=== PATIENT | female | born 1990 | race Caucasian/White ===

== ENCOUNTER 2016-11-09 14:51 | Emergency (ER) | payer MEDICAID ==
[~2016-11-09] VITALS: Ht 157.5 cm; Wt 43.1 kg
[2016-11-09 14:57] VITALS: BP 127/81
[2016-11-09] MEDS ORDERED: ADDERALL 20 MG20 MG ORAL (15:00)
[2016-11-09] MEDS ORDERED: KLONOPIN0.5 MG ORAL (15:01)
[2016-11-09] MEDS ORDERED: CELEXA20 MG ORAL (15:01)
[2016-11-09] MEDS ORDERED: XANAX0.5 MG ORAL (15:24)
[2016-11-09] MEDS ORDERED: CORTISPORIN EAR10 ML LEFT EAR (15:24)
[2016-11-09 15:29] VITALS: BP 116/78
--- NOTE | 2016-11-09 22:41 | Emergency Room Report ---
History of Present Illness General Chief Complaint: General Complaint Source: Patient Present Illness HPI The patient is a 26-year-old female with a history of anxiety disorder presenting for increased anxiety and left ear pain. The patient states that she has not seen a psychiatrist in one year because she has been doing well without medications. The patient states that she has had increased anxiety due to familial issues. The patient also notes left ear pain which began 1 week prior. Pain is described as a 10 out of 10 dull ache it is worse with touch. The patient denies changes in hearing and denies nausea, vomiting, fever, chills, dizziness , headache Allergies: Coded Allergies: No Known Allergies (Unverified , 11/09/16) Patient History Past Medical History: see triage record, psych hx Pertinent Family History: none Last Menstrual Period: LAST WEEK Now: No Reviewed Nursing Documentation: PMH: Agreed, PSxH: Agreed Nursing Documentation-PMH Past Medical History: No History, Except For History Of Psychiatric Problem: Yes - ADHD Review of Systems All Other Systems: negative except mentioned in HPI Physical Exam Vital Signs Date Time Temp Pulse Resp B/P Pulse Ox O2 Delivery O2 Flow Rate FiO2 11/09/16 14:57 98.2 99 14 127/81 98 Room Air Sp02 EP Interpretation: reviewed, normal General Appearance: no apparent distress, alert, GCS 15, non-toxic Head: normocephalic, atraumatic ENT: hearing grossly normal, normal pharynx, no angioedema, normal voice, TMs + canals normal, uvula midline, other - L EAC is erythematous. TTP over tragus Neck: full range of motion, supple/symm/no masses Respiratory: chest non-tender, lungs clear, normal breath sounds, speaking full sentences Cardiovascular #1: regular rate, rhythm, no edema Neurologic: alert, oriented x3, responsive, motor strength/tone normal, sensory intact, speech normal Psychiatric: judgement/insight normal, memory normal, mood/affect normal, no suicidal/homicidal ideation Suicide Risk Assessment: Suicidal Ideation: No Had intent to initiate attempt: No Pt's plan for suicide attempt: No Has means to complete attempt: No Skin: normal color, no rash, warm/dry, well hydrated Lymphatic: no adenopathy Medical Decision Making PA Attestation Dr. Whittaker is my supervising physician. Patient management was discussed with my supervising physician Diagnostic Impression: Primary Impression: Otitis externa of left ear Additional Impression: Anxiety disorder ER Course The patient is a 26-year-old female with a history of anxiety disorder presenting for increased anxiety and left ear pain. Differential diagnosis consider anxiety disorder, depression, suicide ideation Differential diagnosis include but not limited to otitis externa, otitis media, mastoiditis, sinusitis, pharyngitis Physical exam: Vitals within normal limits. No apparent distress Left ear: Tenderness to palpation over the tragus. External auditory canal is erythematous. Tympanic membrane intact. No bulging. The patient will be treated for otitis externa and will be given a limited prescription for Xanax. Patient needs to see a psychiatrist as soon as possible. ER precautions are given Last Vital Signs Date Time Temp Pulse Resp B/P Pulse Ox O2 Delivery O2 Flow Rate FiO2 11/09/16 15:29 98.2 88 14 116/78 100 Room Air Status: improved Disposition: HOME, SELF-CARE Condition: Improved Scripts Neomycin/Polymyxin B Sulf/Hc* (CORTISPORIN EAR SOLUTION*) 10 Ml Solution 4 DROP LEFT EAR QID, #10 ML 0 Refills Prov: BRYSON GREENBERG 11/09/16 Alprazolam* (XANAX*) 0.5 Mg Tablet 0.5 MG ORAL TID Y for PRN Agitation/Anxiety, #15 TAB 0 Refills Prov: BRYSON GREENBERG. 11/09/16 Referrals: NOT CHOSEN [facility]/MD,REFERRING (PCP) Patient Instructions: Otitis Externa, Panic Attacks Additional Instructions: I discussed my findings with the patient. All questions and concerns have been answered. Treatment and medication compliance have been addressed. I advised the patient that they need to follow up with PMD in 3-5 days. Return to ED if symptoms worsen, new symptoms arise, or if needed for any reason. Patient verbalized understanding of discharge instructions. The patient is advised that she needs to see a psychiatrist as soon as possible BRYSON GREENBERG Nov 09, 2016 22:41
== END 2016-11-09 15:32 | disposition home or self-care (01) ==
LOC: EMR 15:25
DX: H60.92 Unspecified otitis externa, left ear (principal); F41.9 Anxiety disorder, unspecified; F90.9 Attention-deficit hyperactivity disorder, unspecified type
CPT/HCPCS: 99284

== ENCOUNTER 2016-11-16 16:32 | Emergency (ER) | payer MEDICAID ==
[~2016-11-16] VITALS: Ht 157.5 cm; Wt 43.1 kg
[~2016-11-16 16:32] MED LIST: ADDERALL 20 MG20 MG ORAL; CELEXA20 MG ORAL; CORTISPORIN EAR10 ML LEFT EAR; KLONOPIN0.5 MG ORAL; XANAX0.5 MG ORAL
[2016-11-16] MEDS ORDERED: XANAX0.5 MG ORAL (17:02)
[2016-11-16 17:17] VITALS: BP 110/73
--- NOTE | 2016-11-16 17:37 | Emergency Room Report ---
History of Present Illness General Chief Complaint: Medication Refill Source: Patient Present Illness HPI The patient is a 26 old female with a history of anxiety disorder presenting for medication refill. The patient states that she usually takes Xanax, Klonopin, and Adderall which her primary care physician and psychiatrist prescribes her. The patient states that she has recently moved to [place] and has not been able to secure primary care physician. The patient ran out of medications last week and has been feeling anxious. The patient denies any new for recent life stressors. Patient denies any suicidal ideation. The patient does admit to nausea today but denies vomiting, fever, chills, dizziness, blurred vision, headache, abdominal pain, chest pain, shortness of breath Allergies: Coded Allergies: No Known Allergies (Unverified , 11/09/16) Patient History Past Medical History: see triage record Pertinent Family History: none Last Menstrual Period: 11/03/2016 Now: No : 0 Para: 0 Reviewed Nursing Documentation: PMH: Agreed, PSxH: Agreed Nursing Documentation-PMH Hx Asthma: Yes Review of Systems All Other Systems: negative except mentioned in HPI Physical Exam Vital Signs Date Time Temp Pulse Resp B/P Pulse Ox O2 Delivery O2 Flow Rate FiO2 11/16/16 16:47 98.2 95 16 110/73 99 Room Air Sp02 EP Interpretation: reviewed, normal General Appearance: no apparent distress, alert, GCS 15, non-toxic Head: normocephalic, atraumatic Eyes: bilateral eye PERRL, bilateral eye normal inspection Respiratory: chest non-tender, lungs clear, normal breath sounds, speaking full sentences Cardiovascular #1: regular rate, rhythm, no edema Musculoskeletal: back normal, gait/station normal, normal range of motion, non- tender Neurologic: alert, oriented x3, responsive, motor strength/tone normal, sensory intact, normal gait, speech normal Psychiatric: judgement/insight normal, memory normal, no suicidal/homicidal ideation, anxious Skin: normal color, no rash, warm/dry, well hydrated Lymphatic: no adenopathy Medical Decision Making PA Attestation Dr. Cage is my supervising physician. Patient management was discussed with my supervising physician Diagnostic Impression: Primary Impression: Encounter for medication refill Additional Impression: Anxiety disorder ER Course The patient is a 26-year-old female with a history of anxiety disorder presenting for medication refill Differential diagnoses considered but not limited to anxiety disorder, suicidal ideation, depression PE: Vitals within normal limits. The patient appears mildly anxious. HEENT exam is unremarkable. Lungs are clear to auscultation bilaterally. RRR Skin warm and dry The patient will be given a limited prescription for Xanax. Patient needs to followup with primary care physician and psychiatrist for continued treatment. ER precautions are given Last Vital Signs Date Time Temp Pulse Resp B/P Pulse Ox O2 Delivery O2 Flow Rate FiO2 11/16/16 17:17 98.2 95 16 110/73 99 Room Air Status: improved Disposition: HOME, SELF-CARE Condition: Improved Scripts Alprazolam* (XANAX*) 0.5 Mg Tablet 0.5 MG ORAL THREE TIMES A DAY, #15 TAB 0 Refills Prov: BRYSON GREENBERG 11/16/16 Referrals: NOT CHOSEN [facility]/,REFERRING (PCP) Patient Instructions: Medicine Refill at the Emergency Department Additional Instructions: I discussed my findings with the patient. All questions and concerns have been answered. Treatment and medication compliance have been addressed. I advised the patient that they need to follow up with PMD in 3-5 days. Return to ED if symptoms worsen, new symptoms arise, or if needed for any reason. Patient verbalized understanding of discharge instructions. The patient is advised she needs to see primary care physician for medication refill and evaluation BRYSON GREENBERG Nov 16, 2016 17:37
== END 2016-11-16 17:17 | disposition home or self-care (01) ==
LOC: EMR 17:00
DX: F41.9 Anxiety disorder, unspecified (principal); J45.909 Unspecified asthma, uncomplicated
CPT/HCPCS: 99283

== ENCOUNTER 2016-12-10 12:06 | Emergency (ER) | payer MEDICAID ==
[~2016-12-10] VITALS: Ht 157.5 cm; Wt 45.4 kg
--- NOTE | 2016-12-10 12:41 | Emergency Room Report ---
History of Present Illness General Chief Complaint: Upper Respiratory Illness Source: Patient Present Illness HPI 26-year-old female presents to emergency Department complaining of sinus pressure and purulent nasal drainage intermittently since September. Patient states that for the last week and a half the right side of her face has increased pressure and more drainage than the left nostrils. She reports increased in frequency of headaches and states that she is currently being treated for left otitis externa using drops. Patient reports generalized malaise and states that she does not currently have a PCP and is inquiring about possible infusion to help boost her immune system. Patient denies history of immunocompromise denies past medical history other than depression and ADD. she reports subjective fevers, denies chills denies cough denies sore throat. She denies abdominal pain neck pain or stiffness, rashes. Denies CP, Palpitations, LOC, AMS, dizziness, Changes in Vision, Sensation, paresthesias, or a sudden severe headache. Allergies: Coded Allergies: No Known Allergies (Unverified , 11/09/16) Patient History Past Medical History: see triage record Past Surgical History: none Pertinent Family History: none Last Menstrual Period: 12/01/16 Now: No Reviewed Nursing Documentation: PMH: Agreed, PSxH: Agreed Nursing Documentation-PMH Past Medical History: No Stated History Hx Asthma: Yes Review of Systems All Other Systems: negative except mentioned in HPI Physical Exam Vital Signs Date Time Temp Pulse Resp B/P Pulse Ox O2 Delivery O2 Flow Rate FiO2 12/10/16 12:14 97.5 82 14 109/61 100 Room Air Sp02 EP Interpretation: reviewed, normal General Appearance: no apparent distress, alert, GCS 15, non-toxic Head: normocephalic, atraumatic Eyes: bilateral eye PERRL, bilateral eye normal inspection ENT: hearing grossly normal, normal pharynx, no angioedema, normal voice, uvula midline, moist mucus membranes, nasal congestion, other - right sided unilateral TTp to the maxiallary and frontal sinuses, purulent d/c noted in the the nares. Left otitis externa, and small crusted lesion on the lobe of the right ear. less than 0.2mm in size Neck: full range of motion, no meningismus, no bony tend, supple/symm/no masses Respiratory: chest non-tender, lungs clear, normal breath sounds, speaking full sentences Cardiovascular #1: regular rate, rhythm, no edema Gastrointestinal: normal bowel sounds, non tender, soft, no guarding, no rebound Rectal: deferred Genitourinary: normal inspection, no CVA tenderness Musculoskeletal: back normal, gait/station normal, normal range of motion, non- tender, no calf tenderness Neurologic: alert, oriented x3, responsive, motor strength/tone normal, sensory intact, speech normal Psychiatric: judgement/insight normal, memory normal, mood/affect normal, no suicidal/homicidal ideation Skin: normal color, no rash, warm/dry, well hydrated Lymphatic: other - bilateral subparotid lymphadenopathy Medical Decision Making PA Attestation Dr. Meredith is my supervising Physician whom patient management has been discussed with. Diagnostic Impression: Primary Impression: Sinusitis Qualified Codes: J01.00 - Acute maxillary sinusitis, unspecified Additional Impressions: Otitis externa of left ear Qualified Codes: H60.502 - Unspecified acute noninfective otitis externa, left ear Malaise and fatigue ER Course 26-year-old female presents to emergency Department complaining of sinus pressure and purulent nasal drainage intermittently since September. Patient states that for the last week and a half the right side of her face has increased pressure and more drainage than the left nostrils. She reports increased in frequency of headaches and states that she is currently being treated for left otitis externa using drops. Patient reports generalized malaise and states that she does not currently have a PCP and is inquiring about possible infusion to help boost her immune system. Patient denies history of immunocompromise denies past medical history other than depression and ADD. she reports subjective fevers, denies chills denies cough denies sore throat. She denies abdominal pain neck pain or stiffness, rashes. Ddx considered but are not limited to sinusitis, URI, pneumonia, PE, strep pharyngitis, meningitis. Vital signs: Pt. is afebrile, the remaining VS are WNL H&PE are most consistent with Sinusitis, resolving otitis externa ORDERS: none required at this time, the diagnosis is clinical ED INTERVENTIONS: None required at this time. D/W pt to cont. taking abx ear drops for otitis externa of the left ear. DISCHARGE: At this time pt. is stable for d/c to home. Will provide printed patient care instructions, and any necessary prescriptions. Care plan and follow up instructions have been discussed with the patient prior to discharge. Last Vital Signs Date Time Temp Pulse Resp B/P Pulse Ox O2 Delivery O2 Flow Rate FiO2 12/10/16 12:18 82 14 Room Air 12/10/16 12:14 97.5 109/61 100 Disposition: HOME, SELF-CARE Condition: Stable Scripts Acetaminophen* (TYLENOL EXTRA STRENGTH*) 500 Mg Tablet 500 MG ORAL Q6H Y for Mild Pain/Temp > 100.5, #30 TAB 0 Refills Prov: Karlie Sharma 12/10/16 Bacitracin Zinc/Polymyx B Sulf (HM DOUBLE ANTIBIOTIC OINTMENT) 28.4 Gm Oint...g. 1 APPLIC TP BID, #28.4 GM Prov: Karlie Sharma 12/10/16 Mometasone Furoate (NASONEX) 17 Gm [place].pump 2 SPRAYS NASAL DAILY, #17 GM 0 Refills Prov: Karlie Sharma 12/10/16 Amoxicillin/Potassium Clav 875-125* (AUGMENTIN 875-125 TABLET*) 1 Each Tablet 1 TAB ORAL TWICE A DAY for 10 Days, #20 TAB Prov: Karlie Shamra 12/10/16 Patient Instructions: Sinusitis, Adult, [id number] Additional Instructions: Take medications as directed. Follow up with PCP in 3-5 days Return sooner to ED if new symptoms occur, or current symptoms become worse. *!* Review provided list of free or reduced cost health clinics for follow up * !* Continue to use your antibiotic ear drops, as previously prescribed - Please note that this Emergency Department Report was dictated using [employer] net maker technology software, occasionally this can lead to erroneous entry secondary to interpretation by the dictation equipment. Karlie Sharma Dec 10, 2016 12:41
[2016-12-10] MEDS ORDERED: NASONEX17 GM NASAL (12:45)
[2016-12-10] MEDS ORDERED: AUGMENTIN 875-1 EAC1 ORAL (12:45)
[2016-12-10] MEDS ORDERED: TYLENOL EXTRA500 MG ORAL (12:45)
[2016-12-10] MEDS ORDERED: HM DOUBLE ANT28.4 G1 TP (12:45)
[2016-12-10 12:59] VITALS: BP 117/79
== END 2016-12-10 12:59 | disposition home or self-care (01) ==
LOC: EMR 12:58
DX: J32.9 Chronic sinusitis, unspecified (principal); H60.92 Unspecified otitis externa, left ear; J45.909 Unspecified asthma, uncomplicated
CPT/HCPCS: 99284